=== PATIENT | female | born 1975 ===

== ENCOUNTER 2017-02-02 08:45 | Emergency (ER) | payer OTHER ==
[2017-02-02 09:10] VITALS: BMI 31.6
[2017-02-02 09:20] VITALS: RESP 18; TEMP 98.3; O2SAT 99
--- NOTE | 2017-02-02 09:24 | ED PDOC ---
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 hip pain x 2 days s/p running and heard popping sound. Pt. stated that she was jogging 2 days ago, heard popping sound heard from the hip region which she panic and stop jogging, been having the pain which she able to bear weight and walk but with pain, no limping, non-radiating pain, no dizziness, no urinary symptoms, no other medical or psychological complaints. Past Medical History - Provider Review Nursing Documentation Reviewed: Yes - Past History Past History: No Previous - Infectious Disease Hx of Infectious Diseases: None - Tetanus Immunization Tetanus Immunization: Unknown - Reproductive Menopause: No - Cardiac Hx Cardiac Disorders: No - Pulmonary Hx Asthma: Yes - Musculoskeletal/Rheumatological Hx Back Pain: Yes - Psychiatric Hx Depression: No Hx Emotional Abuse: No Hx Physical Abuse: No Hx Substance Use: No - Surgical History Hx Section: Yes (x1 1994) Other/Comment: polyps removed from nose - Anesthesia Hx Anesthesia: No Hx Anesthesia Reactions: No Hx Malignant Hyperthermia: No - Suicidal Assessment Feels Threatened In Home Enviroment: No Family/Social History - Physician Review Nursing Documentation Reviewed: Yes Family/Social History: Unknown Family HX Smoking Status: Former Smoker Hx Alcohol Use: Yes Frequency of alcohol use: Socially Hx Substance Use: No Hx Substance Use Treatment: No Allergies/Home Meds Allergies/Adverse Reactions: Allergies No Known Allergies Allergy (Verified 03/30/15 11:52) Home Medications: Home Meds Medication Instructions Recorded Confirmed Montelukast [Singulair] 10 mg PO DAILY 11/15/12 04/10/15 Review of Systems - Review of Systems Constitutional: absent: Fatigue, Fevers Eyes: absent: Vision Changes ENT: absent: Hearing Changes Respiratory: absent: Cough Cardiovascular: absent: Chest Pain Gastrointestinal: absent: Abdominal Pain, Nausea, Vomiting Genitourinary Female: absent: Dysuria Musculoskeletal: Arthralgias. absent: Back Pain, Neck Pain, Joint Swelling, Myalgias Skin: absent: Rash Neurological: absent: Headache, Dizziness, Focal Weakness, Gait Changes, Speech Changes, Facial Droop, Disequilibrium, Seizure Physical Exam Vital Signs Reviewed: Yes Vital Signs Temp Pulse Resp BP Pulse Ox 02/02/17 10:12 69 18 132/89 99 02/02/17 09:19 98.3 F 74 18 136/96 H 99 Temperature: Afebrile Blood Pressure: Hypertensive Pulse: Regular Respiratory Rate: Normal Appearance: Positive for: Well-Appearing, Non-Toxic, Comfortable Pain Distress: Mild Mental Status: Positive for: Alert and Oriented X 3 - Systems Exam Head: Present: Atraumatic, Normocephalic Pupils: Present: PERRL Extroacular Muscles: Present: EOMI Conjunctiva: Present: Normal Mouth: Present: Moist Mucous Membranes Neck: Present: Normal Range of Motion Respiratory/Chest: Present: Clear to Auscultation, Good Air Exchange. No: Respiratory Distress, Accessory Muscle Use Cardiovascular: Present: Regular Rate and Rhythm, Normal S1, S2. No: Murmurs Abdomen: Present: Normal Bowel Sounds. No: Tenderness, Distention, Peritoneal Signs Back: Present: Normal Inspection Upper Extremity: Present: Normal Inspection. No: Cyanosis, Edema Lower Extremity: Present: Normal Inspection, Other (mild +ttp on the lt. lateral bursa region with no ecchymosis or deformity, FROM without limitation on the lt. hip region, +DPPT pulses with capillary refill< 2 seconds on the left foot. ). No: Edema Neurological: Present: GCS=15, Speech Normal, Motor Func Grossly Intact, Gait Normal, Memory Normal Skin: Present: Warm, Dry, Normal Color. No: Rashes Psychiatric: Present: Alert, Oriented x 3, Normal Insight, Normal Concentration Medical Decision Making ED Course and Treatment: 02/02/17 09:27 -lt. hip and pelvis xray -pt. took motrin prior to came to the ER, eating breakfast now -observe and reassess 02/02/17 10:10 -Xrays show no fracture or dislocation -Discharge home with indomethacin, crutches, ice compression, avoid strenuous exercise or activity, follow up with your own pmd and orthopedic within 2 days, return to the ER for any new or worsening signs or symptoms. - RAD Interpretation Radiology Orders: 02/02/17 09:22 Hip Left [HIP MIN 4V W/ PELVIS LT] [RAD] Stat PROCEDURE: Pelvis and left hip HISTORY: lt. hip injury and pain COMPARISON: TECHNIQUE: Three views FINDINGS: There is no evidence of fracture. There are no degenerative changes. IMPRESSION: Negative study Senior Analyst Programmer: Radiologist - PA / MANAGER OF DEVELOPMENT / Resident Statement MD/DO has reviewed & agrees with the documentation as recorded. Disposition/Present on Arrival - Present on Arrival Any Indicators Present on Arrival: No History of DVT/PE: No History of Uncontrolled Diabetes: No Urinary Catheter: No History of Decub. Ulcer: No History Surgical Site Infection Following: None - Disposition Have Diagnosis and Disposition been Completed?: Yes Diagnosis: Strain of hip, Bursitis Disposition: HOME/ ROUTINE Disposition Time: 09:28 Patient Plan: Discharge Patient Problems: Current Active Problems Problem Status Diagnosed Bursitis Acute Strain of hip Acute Condition: GOOD Additional Instructions: Discharge home with indomethacin, crutches, ice compression, avoid strenuous exercise or activity, follow up with your own pmd and orthopedic within 2 days, return to the ER for any new or worsening signs or symptoms. Prescriptions: Indomethacin [Indocin] 50 mg PO TID PRN #21 cap PRN Reason: Other Referrals: [facility] [place] [Outside] - Follow up with primary Mitchell Peraza III, MD [Medical Doctor] - Follow up with primary Forms: WORK NOTE
[2017-02-02 10:13] VITALS: BP 132/89; PULSE 69
--- NOTE | 2017-02-02 10:21 | RAD ---
PROCEDURE: Pelvis and left hip HISTORY: lt. hip injury and pain COMPARISON: TECHNIQUE: Three views FINDINGS: There is no evidence of fracture. There are no degenerative changes. IMPRESSION: Negative study
== END 2017-02-02 10:39 | disposition home or self-care (01) ==
LOC: ED 08:45
DX: S76.012A Strain of muscle, fascia and tendon of left hip, initial encounter (principal); X50.0XXA Overexertion from strenuous movement or load, initial encounter; Y93.02 Activity, running; Y92.9 Unspecified place or not applicable; M70.72 Other bursitis of hip, left hip